=== PATIENT | female | born 1945 | race Two or more races ===

== ENCOUNTER 2017-05-02 15:10 | Outpatient (CLI) | payer OTHER | END 2017-05-02 15:15 | disposition home or self-care (01) | LOC: RAD 15:10 | DX: J44.9 Chronic obstructive pulmonary disease, unspecified (principal) ==

== ENCOUNTER 2018-01-31 09:23 | Outpatient (CLI) | payer OTHER ==
[~2018-01-31] VITALS: Ht 162.6 cm; Wt 65.8 kg
== END 2018-01-31 11:22 | disposition home or self-care (01) ==
LOC: OFIC 805 09:23
DX: J34.89 Other specified disorders of nose and nasal sinuses (principal); H61.23 Impacted cerumen, bilateral

== ENCOUNTER 2018-04-19 09:57 | Outpatient (CLI) | payer OTHER | END 2018-04-19 10:00 | disposition home or self-care (01) | LOC: MAMO-SONO 09:57 | DX: Z12.31 Encounter for screening mammogram for malignant neoplasm of breast (principal); Z87.898 Personal history of other specified conditions; N61.0 Mastitis without abscess ==

== ENCOUNTER → 2018-04-25 | Outpatient (CLI) | payer OTHER | END | disposition home or self-care (01) | LOC: NUCLEAR 10:00 | DX: M81.0 Age-related osteoporosis without current pathological fracture (principal) ==

== ENCOUNTER 2018-11-27 11:37 | Outpatient (CLI) | payer OTHER | END 2018-11-27 11:39 | disposition home or self-care (01) | LOC: RAD 11:37 | DX: M54.5 Low back pain (principal) ==

== ENCOUNTER 2019-03-16 07:54 | Emergency (ER) | payer OTHER ==
[~2019-03-16] VITALS: Ht 170.2 cm; Wt 65.8 kg
[2019-03-16] MEDS ORDERED: METROPOLOL PO (08:15)
[2019-03-16] MEDS ORDERED: ASPIR 8181 MG PO (08:16)
[2019-03-16] MEDS ORDERED: CALCIUM500 M1 PO (08:16)
[2019-03-16] MEDS ORDERED: PROMETH-CODEIN 65 ML PO (09:05)
[2019-03-16] MEDS ORDERED: MUCINEX1200 MG PO (09:05)
== END 2019-03-16 09:25 | disposition home or self-care (01) ==
LOC: ER 07:54
DX: R05 Cough (principal)

== ENCOUNTER 2019-04-24 08:47 | Outpatient (CLI) | payer OTHER ==
[~2019-04-24 08:47] MED LIST: ASPIR 8181 MG PO; CALCIUM500 M1 PO; METROPOLOL PO; MUCINEX1200 MG PO; PROMETH-CODEIN 65 ML PO
== END 2019-04-24 08:48 | disposition home or self-care (01) ==
LOC: MAMO-SONO 08:47
DX: Z12.31 Encounter for screening mammogram for malignant neoplasm of breast (principal); N63.10 Unspecified lump in the right breast, unspecified quadrant; N63.20 Unspecified lump in the left breast, unspecified quadrant

== ENCOUNTER 2020-06-19 09:23 | Outpatient (CLI) | payer OTHER ==
[~2020-06-19 09:23] MED LIST changes: +MOBIC7.5 MG PO; +ZANAFLEX2 MG PO
== END 2020-06-19 09:35 | disposition home or self-care (01) ==
LOC: MAMO-SONO 09:23
PROVIDERS: ATTEND Specialist
DX: Z12.31 Encounter for screening mammogram for malignant neoplasm of breast (principal); Z87.898 Personal history of other specified conditions; N63.0 Unspecified lump in unspecified breast

== ENCOUNTER 2020-07-29 08:56 | Outpatient (CLI) | payer OTHER | END 2020-07-29 08:57 | disposition home or self-care (01) | LOC: NUCLEAR 08:56 | PROVIDERS: ATTEND Internal Medicine Cardiovascular Disease | DX: I87.2 Venous insufficiency (chronic) (peripheral) (principal) ==

== ENCOUNTER 2020-07-29 09:00 | Outpatient (CLI) | payer OTHER | END 2020-07-29 09:07 | disposition home or self-care (01) | LOC: NUCLEAR 09:00 | PROVIDERS: ATTEND Internal Medicine Cardiovascular Disease | DX: M81.0 Age-related osteoporosis without current pathological fracture (principal); E55.9 Vitamin D deficiency, unspecified ==

== ENCOUNTER 2021-06-15 11:30 | Outpatient (CLI) | payer OTHER | END 2021-06-15 11:32 | disposition home or self-care (01) | LOC: SONOGRAMA 11:30 | PROVIDERS: ATTEND Specialist | DX: R10.2 Pelvic and perineal pain (principal) ==

== ENCOUNTER 2021-06-18 11:20 | Outpatient (CLI) | payer OTHER | END 2021-06-18 11:21 | disposition home or self-care (01) | LOC: NUCLEAR 11:20 | PROVIDERS: ATTEND Specialist | DX: M85.89 Other specified disorders of bone density and structure, multiple sites (principal) ==

== ENCOUNTER 2021-06-23 09:17 | Outpatient (CLI) | payer OTHER | END 2021-06-23 09:25 | disposition home or self-care (01) | LOC: MAMO-SONO 09:17 | PROVIDERS: ATTEND Specialist | DX: Z12.31 Encounter for screening mammogram for malignant neoplasm of breast (principal); N63.0 Unspecified lump in unspecified breast ==

== ENCOUNTER → 2021-08-03 | Outpatient (CLI) | payer OTHER | END | disposition home or self-care (01) | LOC: RAD 09:50 | DX: M75.81 Other shoulder lesions, right shoulder (principal) ==

== ENCOUNTER 2022-02-23 09:50 | Outpatient (CLI) | payer OTHER | END 2022-02-23 09:51 | disposition home or self-care (01) | LOC: NUCLEAR 09:50 | PROVIDERS: ATTEND Internal Medicine Cardiovascular Disease | DX: I73.9 Peripheral vascular disease, unspecified (principal) ==

== ENCOUNTER 2022-02-24 09:53 | Outpatient (CLI) | payer OTHER | END 2022-02-24 09:54 | disposition home or self-care (01) | LOC: NUCLEAR 09:53 | PROVIDERS: ATTEND Internal Medicine Cardiovascular Disease | DX: I87.2 Venous insufficiency (chronic) (peripheral) (principal) ==

== ENCOUNTER 2022-02-24 10:47 | Outpatient (CLI) | payer OTHER | END 2022-02-24 10:52 | disposition home or self-care (01) | LOC: RAD 10:47 | PROVIDERS: ATTEND Internal Medicine Cardiovascular Disease | DX: M12.9 Arthropathy, unspecified (principal) ==

== ENCOUNTER → 2022-07-28 | Outpatient (CLI) | payer OTHER | END | disposition home or self-care (01) | LOC: MAMO-SONO 09:56 | PROVIDERS: ATTEND Specialist | DX: Z12.31 Encounter for screening mammogram for malignant neoplasm of breast (principal); N63.0 Unspecified lump in unspecified breast ==

== ENCOUNTER 2022-12-14 09:47 | Outpatient (CLI) | payer OTHER | END 2022-12-14 09:58 | disposition home or self-care (01) | LOC: TOM 09:47 | PROVIDERS: ATTEND Internal Medicine Cardiovascular Disease | DX: R51.9 Headache, unspecified (principal); R41.2 Retrograde amnesia ==

== ENCOUNTER 2023-10-31 08:19 | Outpatient (CLI) | payer OTHER | END 2023-10-31 08:27 | disposition home or self-care (01) | LOC: MAMO-SONO 08:19 | PROVIDERS: ATTEND Specialist | DX: N63.0 Unspecified lump in unspecified breast (principal); Z12.31 Encounter for screening mammogram for malignant neoplasm of breast ==

== ENCOUNTER 2024-06-26 13:35 | Outpatient (CLI) | payer OTHER ==
[~2024-06-26 13:35] MED LIST changes: +DICLOFENAC POTA50 MG PO
== END 2024-06-26 13:43 | disposition home or self-care (01) ==
LOC: RAD 13:35
PROVIDERS: ATTEND Internal Medicine Cardiovascular Disease
DX: M19.90 Unspecified osteoarthritis, unspecified site (principal)